=== PATIENT | female | born 1960 | race African-American/Black ===

== ENCOUNTER 2018-09-05 15:53 | Emergency (ER) | payer OTHER ==
[2018-09-05] MEDS ORDERED: ZOFRAN IV ONE (16:30)
[2018-09-05] MEDS ORDERED: SUBLIMAZE IV ONE (16:30)
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
[2018-09-05] MEDS ORDERED: DILAUDID IV ONE (18:06)
[2018-09-05 18:48] VITALS: BP 130/70
== END 2018-09-05 19:24 | disposition home or self-care (01) ==
LOC: ED 15:53
DX: S00.83XA Contusion of other part of head, initial encounter (principal); E04.1 Nontoxic single thyroid nodule; Z79.899 Other long term (current) drug therapy; Y04.0XXA Assault by unarmed brawl or fight, initial encounter; Y93.89 Activity, other specified; Y92.89 Other specified places as the place of occurrence of the external cause; Y99.0 Civilian activity done for income or pay
CPT/HCPCS: 70450; 70486; 72125; 96374; 96375; 99284; J1170; J2405; J3010